=== PATIENT | male | born 1995 | race Two or more races ===

== ENCOUNTER 2024-05-28 14:17 | Outpatient (REF) | payer MEDICAID, SELFPAY ==
--- NOTE | ~2024-05-28 | XR_ITS ---
EXAMINATION: XR FEMUR, LEFT CLINICAL INFORMATION: chronic leg pain COMPARISON: None available. TECHNIQUE: AP and lateral views of the left femur were obtained. FINDINGS: The bones and soft tissues are normal. No fracture. No osseous lesions. Imaged joints appear normal. XR/XR femur LT 2V IMPRESSION: Normal left femur. Electronically signed by: Dusty Luque MD 05/28/2024 02:55 PM EDT RP
--- OUTSIDE RECORDS SUMMARY | 2024-05-28 18:00 | XMS_ITS | Encounter Summary ---
Author Organization [employer] Address [address] [place] [address] Care Team Providers Care Manager Wastewater Name Role Phone Unavailable Primary Care Provider Unavailabl e Reason for Visit * Reason Comments Walk-In Headaches and migrai sayra, pt is used to having headaches but recently they have been back to back which is causing him to vomit and go pale ; pt also states that he is experiencing sharp pain onhis left side from his hip down to his leg Encounter Details Date Type Department Care Team (Latest Contact Info) Description 05/27/2024 6:00 PM EDT Office Visit [facility] [address] [place] [id number] Left leg pain (Primary Dx); Chronic nonintractable headache, unspecified headache type; Elevated blood pressure reading in office without diagnosis of hypertension Social History Tobacco Use Types Packs/Day Years Used Date Smoking Tobacco: Never Passive Smoke Exposure: Never Smokeless Tobacco: Never Tobacco Cessation:Counseling Given: Not Answered Sex and Gender Information Value Date Recorded Sex Assigned at Male 05/27/2024 1:31 PM EDT Legal Sex Male 1:29 PM EDT Gender Identity Male 05/27/2024 1:31 PM EDT Sexual Orientation Straight 05/27/2024 1: 31 PM EDT documented as of this encounter Last Filed Vital Signs Vital Sign Reading Time Taken Comments Blood Pressure 146/90 05/27/2024 7:21 PM EDT manual BP check Pulse 80 05/27/2024 5:53 PM EDT Temperature 36.8 ??C (98.2 ??F) 05/27/2024 5 :53 PM EDT Respiratory Rate 20 05/27/2024 5:53 PM EDT Oxygen Saturation 98% 05/27/2024 5:5 3 PM EDT Inhaled Oxygen Concentration - - Weight 92.5 kg (204 lb) 05/27/2024 5:53 PM EDT Height - - Body Mass Index - - documented in this encounter Plan of Treatment Upcoming Encounters Date Type Department Care Team (Late st Contact Info) Description 06/10/2024 10:00 AM EDT Office Visit [facility] [address] [place] [address] Maryann Andino DMD Scheduled Orders Name Type Priority Associated Diagnoses Orde r Schedule Basic Metabolic Panel Lab Routine Left leg pain Expected: 05/27/2024 (Approximate), Expires: 05/27/2025 documented as of this encounter Procedures Procedure Name Priority Date/Time Associated Diagnosis Comments XR FEMUR 2+ VIEWS LEFT Routine 05/28/2024 2:19 PM EDT Left leg pain documented in this encounter Results * XR Femur 2+ Views Left (05/28/2024 2:19 PM EDT) Anatomical Region Laterality Modality Lower Extremities, Femur Left Radiogr aphic Imaging 05/28/2024 2:19 PM EDT Narrative 05/28/2024 2:58 PM EDT ?[facility] ?[address] ?[place] [address] ?XRay Report ? Signed ? Patient: Martin Trujillo ?MR#: [id number] ? : 1995 ?Acct:[id number] ? Age/Sex: 29 / M ?ADM Date: 05/28/24 ? Loc: HO.HHCX ? Attending Jamal Burton ? Ordering Physician: Trista Burton ?? Date of Service: 05/28/24 ?? Procedure(s): XR femur LT 2V ?? Accession Number(s): [id number] ? cc: Trista Burton ? EXAMINATION: ?? XR FEMUR, LEFT ? CLINICAL INFORMATION: ?? chronic leg pain ? COMPARISON: ?? None available. ? TECHNIQUE: ?? AP and lateral views of the left femur were obtained. ? FINDINGS: ?? The bones and soft tissues are normal. No fracture. No osseous lesions. ?? Imaged joints appear normal. ? XR/XR femur LT 2V ?? IMPRESSION: ?? Normal left femur. ? Electronically signed by: ??Dusty Luque MD ??05/28/2024 02:55 PM EDT RP ? Dictated By: ?Dusty Luque MD ? Signed By: ?<Electronically signed by Dusty Luque MD in OV> ?05/28/24 1455 ? DD/ 1419 ? TD/TT: 05/28/24 1449 ? Trail Maintenance Worker: ? Procedure Note Donandres, Image - 05/28/2024 [facility] [address] [place] [address] XRay Report Signed Patient: Amina Trujillo#: [id number] : 1995Acct:[id number] Age/Sex: 29 Date: 05/28/24 Loc: HO.HHCX Attending Dr: Trista Burton Ordering Physician: Trista Burton Date of Service: 05/28/24 Procedure(s): XR femur LT 2V Accession Number(s): [id number] cc: Trista Burton EXAMINATION: XR FEMUR, LEFT CLINICAL INFORMATION: chronic leg pain COMPARISON: None available. TECHNIQUE: AP and lateral views of the left femur were obtained. FINDINGS: The bones and soft tissues are normal. No fracture. No osseous lesions. Imaged joints appear normal. XR/XR femur LT 2V IMPRESSION: Normal left femur. Electronically signed by: Dusty Luque MD 05/28/2024 02:55 PM EDT Dictated By: Dusty Luque MD Signed By: <Electronically signed by Dusty Luque MD in OV> 05/28/24 1455 DD/ 1419 TD/TT: 05/28/[address] Maintenance Worker: Trista Burton SCIENCE AND OPERATIONS OFFICER IMG XR PROCEDURES Final Result documented in this encounter Visit Diagnoses Diagnosis Left leg pain- Primary Pain in soft tissues of limb Chronic nonintractable headache, unspecified headache type Elevated blood pressure reading in office without diagnosis of hypertension documented in this encounter
--- OUTSIDE RECORDS SUMMARY | 2024-05-28 18:00 | XMS_ITS | Clinical Summary ---
Author Organization [email or web address] Address [address] [place] [address] Care Team Providers Care Special Education Paraeducator Name Role Phone Unavailable Primary Care Provider Unavailabl e Allergies Active Allergy Reactions Criticality Noted Date Comments Cat Dander Anaphylaxis High 05/27/2024 Dog Epithelium Hives 05/27/2024 Peanut Butter Flavoring Agen t (Non-Screening) Other 05/27/2024 Medications acetaminophen (Tylenol) 500 MG tablet Take 1 tablet (500 mg) by mouth every 6 (six) hours if needed for mild pain for up to 20 doses. 20 tablet 5 Active amoxicillin (Amoxil) 500 MG capsule Take 1 capsule (500 mg) by mouth every 8 (eight) hours for 7 days. 21 capsule 5 06/04/19 25 Active chlorhexidine (Peridex) 0.12 % solution Swish 15 mL morning and night for 1 minute. Spit, do not swallow. Do not eat or drink for 30 minutes following use. 473 mL 5 Active ibuprofen 600 MG tablet Take 1 tablet (600 mg) by mouth every 6 (six) hours if needed for mild pain or moderate pain for up to 20 doses. 20 tablet 5 Active baclofen (Lioresal) 10 MG tabletIndications: Left leg pain Take one tablet TID PRN 30 tablet 5 Active SUMAtriptan (Imitrex) 25 MG tabletIndications: Chronic nonintractable headache, unspecified headache type Take 1 tablet (25 mg) by mouth 1 (one) time if needed for migraine for up to 9 doses. May repeat dose once in 2 hours if no relief. Do not exceed 2 doses in 24 hours. 9 tablet 5 Active Blood Pressure kitIndications:Chanelle vated blood pressure reading in office without diagnosis of hypertension 1 each 2 times daily. 1 kit 05/28/19 Active Encounters Date Type Department Care Team Description 05/27/2024 6:00 PM EDT Office Visit [facility] [address] [place] [address] Left leg pain (Primary Dx); Chronic nonintractable headache, unspecified headache type; Elevated blood pressure reading in office without diagnosis of hypertension 05/27/2024 2:30 PM EDT Office Visit [facility] [address] [place] [address] Bharat Mercedes from Last 3 Months Social History Tobacco Use Types Packs/Day Years Used Date Smoking Tobacco: Never Passive Smoke Exposure: Never Smokeless Tobacco: Never Tobacco Cessation:Counseling Given: Not Answered Sex and Gender Information Value Date Recorded Sex Assigned at Male 05/27/2024 1:31 PM EDT Legal Sex Male 1:29 PM EDT Gender Identity Male 05/27/2024 1:31 PM EDT Sexual Orientation Straight 05/27/2024 1: 31 PM EDT Last Filed Vital Signs Vital Sign Reading [...] - - Body Mass Index - - Plan of Treatment Upcoming Encounters Date Type Department Care Team (Late st Contact Info) Description 06/10/2024 10:00 AM EDT Office Visit [facility] [address] [place] [address] Maryann Andino DMD Health Maintenance Due Date Last Done Comments Dental Oral Exam 1996 Dental Prophylaxis 1996 Dental X-Ray: Bitewings 1996 Dental X-Ray: Full Mouth 1996 Depression Screening 1996 HIV Screening 1996 SDOH Screening 1996 Alcohol/Substance Use Screening 2008 Family Planning (PISQ) 2011 Hepatitis C Screening 2014 DTaP/Tdap/Td Vaccines (1 - Tdap) 2015 Hepatitis B Vaccines (1 of 3 - 19+ 3-dose series) 2015 COVID-19 Vaccine (1 - 2023-2 5 season) 2023 Influenza Vaccine (#1) 2023 Tobacco Screening 05/27/2025 05/27/2024 Zoster Vaccines (1 of 2) 2046 RSV Patients and Pa tients Aged 60 years or older (1 - 1-dose 75+ series) 2071 HIB Vaccines Aged Out No longer eligi ble based on patient's age to complete this topic HPV Vaccines Aged Out No longer eligi ble based on patient's age to complete this topic Hepatitis A Vaccines Aged Out No long er eligible based on patient's age to complete this topic IPV Vaccines Aged Out No longer eligi ble based on patient's age to complete this topic Meningococcal Vaccine Aged Out No jc hesham eligible based on patient's age to complete this topic Pneumococcal Vaccine: Pediat rics (0 to 5 Years) and At-Risk Patients (6 to 49) Years) Aged Out No longer elig ible based on patient's age to complete this topic RSV under 20 months Aged Out No longe r eligible based on patient's age to complete this topic Rotavirus Vaccines Aged Out No longer eligible based on patient's age to complete this topic Procedures Procedure Name Priority Date/Time Associated Diagnosis Comments XR FEMUR 2+ VIEWS LEFT Routine 05/28/2024 2:19 PM EDT Left leg pain CASE PRESENTATION, DETAILED AND EXTENSIVE TREATMENT PLANNING Routine 05/27/2024 2:30 PM EDT INTRAORAL - PERIAPICAL FIRST RADIOGRAPHIC IMAGE Routine 05/27/2024 2:30 PM EDT LIMITED ORAL EVALUATION - PROBLEM FOCUSED Routine 05/27/2024 2:30 PM EDT from Last 3 Months Results * XR Femur 2+ Views Left (05/28/2024 2:19 PM EDT) Anatomical Region Laterality Modality Lower Extremities, Femur Left Radiogr aphic Imaging 05/28/2024 2:19 PM EDT Narrative 05/28/2024 2:58 PM EDT ?[facility] ?[address] ?[place] [address] ?XRay Report ? Signed ? Patient: Cedrez,Martin ?MR#: [id number] ? : 1995 ?Acct:[id number] ? Age/Sex: 29 / M ?ADM Date: 05/28/24 ? Loc: HO.HHCX ? Attending DrPastor Burton ? Ordering Physician: Trista Burton ?? Date of Service: 05/28/24 ?? Procedure(s): XR femur LT 2V ?? Accession Number(s): [id number] ? cc: Trista Burton ? EXAMINATION: ?? [...] DD/ 1419 ? TD/TT: 05/28/24 1449 ? Pigment Pumper: ? Procedure Note Sreekanth, Image - 05/28/[address] [address] XRay Report Signed Patient: Amina Trujillo#: [id number] : 1995Acct:[id number] Age/Sex: 29 / MADM Date: 05/28/24 Loc: HO.HHCX Attending Dr: Trista Burton Ordering Physician: Trista Burton Date of Service: 05/28/24 Procedure(s): XR femur LT 2V Accession Number(s): [id number] cc: Trista Burton EXAMINATION: XR FEMUR, LEFT CLINICAL INFORMATION: chronic leg pain COMPARISON: None available. TECHNIQUE: AP and lateral views of the left femur were obtained. FINDINGS: The bones and soft tissues are normal. No fracture. No osseous lesions. Imaged joints appear normal. XR/XR femur LT 2V IMPRESSION: Normal left femur. Electronically signed by: Dusty Luque MD 05/28/2024 02:55 PM EDT RP Dictated By: Dusty Luque MD Signed By: <Electronically signed by Dusty Luque MD in OV> 05/28/24 1455 DD/ 1419 TD/TT: 05/28/24 1449 Pigment Pumper: Trista Burton SILVICULTURE PROFESSOR IMG XR PROCEDURES Final Result from Last 3 Months Insurance [facility] C3 DENTAL-[facility] MEDICAID STAND ADULT
--- OUTSIDE RECORDS SUMMARY | 2024-05-28 18:00 | XMS_ITS | Encounter Summary ---
Author Organization [employer] Address [address] [facility] [address] [place] [address] Care Team Providers Care Fac Engineer Name Role Phone Unavailable Primary Care Provider Unavailabl e Reason for Visit * Reason Comments Dental Pain Encounter Details Date Type Department Care Team ([facility] st Contact Info) Description 05/27/2024 2:30 PM EDT Office Visit [facility] [address] [place] [address] Bharat Mercedes [address] [place] [address] Social History Tobacco Use Types Packs/Day Years Used Date Smoking Tobacco: Never Passive Smoke Exposure: Never Smokeless Tobacco: Never Sex and Gender Information Value Date Recorded Sex Assigned at Male 05/27/2024 1:31 PM EDT Legal Sex Male 1:29 PM EDT Gender Identity Male 05/27/2024 1:31 PM EDT Sexual Orientation Straight 05/27/2024 1: 31 PM EDT documented as of this encounter Progress Notes * Bharat Mercedes - 05/27/2024 2:30 PM EDT Images from the original note were not included. Dental procedures in this visit D0140 - LIMITED ORAL EVALUATION - PROBLEM FOCUSED (Completed) Service provider: Bharat Mercedes Billing provider: Bharat Mercedes [id number] - INTRAORAL - PERIAPICAL FIRST RADIOGRAPHIC IMAGE (Completed) Service provider: Bharat Mercedes Billing provider: Bharat Mercedes [id number] - CASE PRESENTATION, DETAILED AND EXTENSIVE TREATMENT PLANNING (Completed) Service provider: Bharat Mercedes Billing provider: Bharat Mercedes Patient ID: Martin Trujillo is a 29 y.o. male. Time Out: Timeout Date: 05/27/24 (lower left pain), Timeout Time: 1402 Location: [facility] Tooth: #19 Procedure: Exam and X-rays Verified the above with patient, assistant project engineer, and provider. Confirmed via patient's chart, intraorally and by radiographs. Potato Peeler: not applicable Chief Complaint Patient presents with Dental Pain Medical Hx: Vitals: There were no vitals taken for this visit. History reviewed. No pertinent past medical history. Medications: Outpatient Encounter Medications as of 05/27/2024 Medication Sig Dispense Refill acetaminophen (Tylenol) 500 MG tablet Take 1 tablet (500 mg) by mouth every 6 (six) hours if neededfor mild pain for up to 20 doses. 20 tablet 0 amoxicillin (Amoxil) 500 MG capsule Take 1 capsule (500 mg) by mouth every 8 (eight) hours for 7 days. 21 capsule 0 chlorhexidine (Peridex) 0.12 % solution Swish 15 mL morning and night for 1 minute. Spit, do not swallow. Do not eat or drink for 30 minutes following use. 473 mL 0 ibuprofen 600 MG tablet Take 1 tablet (600 mg) by mouth every 6 (six) hours if needed for mild painor moderate pain for up to 20 doses. 20 tablet 0 No facility-administered encounter medications on file as of 05/27/2024. 29 y/o male presents for emergency seen by Dr. Bharat Mercedes, [facility]. Chief Complaint: I have pain in lower left back tooth Medical History: Patient does not report any changes in health issues that could alter the Treatment Plan. Medical consult / medical clearance needed: None [place]: Pain: not present today Pain radiating: no Postural variation: no Allergies: Reviewed in EHR Medications: Reviewed in EHR Radiographs X-rays taken today: 1 PA taken today Discussion: -Pt stated that patient has a lot of pain in lower left back tooth. -Clinically, intraoral swelling and redness evident in relation to #19 -PARL in relation to #19 retained root tip evident. -Pt was recommended extraction #19 retained root tip with Dr. Sinclair. -Pt informed about waiting list of Dr. Sinclair and pt understood and agreed. -Medications prescribed. -OHI reviewed. Emphasis was laid on maintaining good oral hygiene regimen at home along with regular visits to dentist. -Pt understood, was satisfied with our conversation and agreed with tx plan; dismissed in good condition. -All questions answered. Soft tissue exam: redness, tenderness and inflammation evident in relation to #19 retained root tip; OCS- negative Head and neck exam: Lymph Nodes, Lips, Palate, Buccal Mucosa, Floor of Mouth, Tongue, Tonsils, Alveolar Ridges, Oropharynx, Salivary Ducts, Vestibules - no abnormal findings. TMJ/Occlusal - TMJ is within normal limits. Oral Cancer Risk - low Oral Hygiene Instruction Provided - Yes Oral Hygiene Instructions: Gore two times daily, modified gary technique, Floss daily, Electric toothbrush, Soft bristle toothbrush, Gore Tongue. Referrals - None Treatment plan: -consult with Dr. Sinclair All questions answered and expressed understanding. Dismissed in good condition. Rx: Amoxicillin 500 mg 1 cap every 8 hours for 7 days- 21 capsules Acetaminophen 500 mg 1 tab every 6 hours prn - 20 tabs Ibuprofen 600 mg 1 tab every 6 hours prn - 20 tabs Peridex NV: consult with Dr. Sinclair Lifter Driver: Ngoc Singh Dentist: Dr. Bharat Mercedes DMD documented in this encounter Plan of Treatment Upcoming Encounters Date Type Department Care Team (Late st Contact Info) Description 06/10/2024 10:00 AM EDT Office Visit [facility] [address] [place] [address] Maryann Andino DMD Scheduled Orders Name Type Priority Associated Diagnoses Orde r Schedule 19 19 EXTRACTION, ERUPTED TOOTH OR EXPOSED ROOT (ELEVATION/FORCEPS REMOVAL) Dental Routine [address] arting 05/27/2024 documented as of this encounter Procedures Procedure Name Priority Date/Time Associated Diagnosis Comments LIMITED ORAL EVALUATION - PROBLEM FOCUSED Routine 05/27/2024 2:30 PM EDT INTRAORAL - PERIAPICAL FIRST RADIOGRAPHIC IMAGE Routine 05/27/2024 2:30 PM EDT CASE PRESENTATION, DETAILED AND EXTENSIVE TREATMENT PLANNING Routine 05/27/2024 2:30 PM EDT documented in this encounter Visit Diagnoses Not on filedocumented in this encounter
== END 2024-05-28 14:18 | disposition home or self-care (01) ==
LOC: HO.HHCX 14:17
PROVIDERS: Visit Provider Nurse Practitioner
DX: M79.605 Pain in left leg (principal)
CPT/HCPCS: 73552

== ENCOUNTER → 2024-05-28 14:19 | Outpatient (BNV) | payer MEDICAID, SELFPAY | PROVIDERS: Visit Provider Radiology Diagnostic Radiology | DX: M79.605 Pain in left leg (principal) | CPT/HCPCS: 73552 ==

== ENCOUNTER 2024-10-26 13:50 | Outpatient (REF) | payer MEDICAID, SELFPAY ==
--- OUTSIDE RECORDS SUMMARY | 2024-10-26 13:00 | XMS_ITS | Encounter Summary ---
Author Organization [employer] Address [address] [facility] 7[address] [place] [address] Care Team Providers Care Documentation Writer Name Role Phone Trista Burton NP Primary Care Provider [phone] Reason for Visit * Reason Comments new patient Encounter Details Date Type Department Care Team ([facility] st Contact Info) Description 10/26/2024 1:00 PM EDT Office Visit [facility] [address] [place] [address] Trista Burton NP [address] [place] [address] Routine screening for STI (sexually transmitted infection) (Primary Dx); Encounter for health-related screening; Rash of genital area; Rectal pain; Tonsillar exudate Social History Tobacco Use Types Packs/Day Years Used Date Smoking Tobacco: Never Passive Smoke Exposure: Never Smokeless Tobacco: Never Alcohol Use Standard Drinks/Week Comments Yes 0 (1 standard drink = 0.6 oz pur e alcohol) drinks on occassion Alcohol Answer Date Recorded How often do you have a drink containing alcohol ? 1 10/26/2024 How many drinks containing a lcohol do you have on a typical day when you are drinking? 1 10/26/2024 How often do you have six or more drinks on one occasion? 0 10/26/2024 Depression Answer Date Recorded Patient Health Questionnaire-9 Score 24 10/26/2024 Patient Health Questionnaire-9 Score 24 10/26/2024 Last PHQ-9: Questionnaire Data Not on file 0 10/26/2024 Housing Stability Answer Date Recorded What is your housing situation today? I do not have housing (Staying with others, in a hotel, in a fci, living outside on the street, on a beach, in a car, or in a park 10/26/[address] you li ve. Do you have problems with any of the following? I am not sure 10/26/2024 Food Insecurity Answer Date Recorded Within the past 12 months, y ou worried that your food would run out before you got money to buy more: Sometimes True 2024 Within the past 12 months,th e food you bought just didn't last and you didn't have enough money to get more: Often true 10/26/2024 Transportation Answer Date Recorded In the past 12 months, has l ack of transportation kept you from medical appts, meetings, work or from getting things needed for daily living? I am not sure 10/26/2024 Utilities Answer Date Recorded In the past 12 months, has t he electric, gas, oil or water company threatened to shut off services in your home? I am not sure 10/26/2024 Depression Answer Date Recorded Patient Health Questionnaire-2 Score 6 10/26/2024 Internet Access Answer Date Recorded Internet Access Q1 Yes 10/26/2024 Internet Access Q2 Not on file 10/26/2024 Sex and Gender Information Value Date Recorded Sex Assigned at Male 05/27/2024 1:31 PM EDT Legal Sex Male 1:29 PM EDT Gender Identity Male 05/27/2024 1:31 PM EDT Sexual Orientation Straight 05/27/2024 1: 31 PM EDT documented as of this encounter Last Filed Vital Signs Vital Sign Reading Time Taken Comments Blood Pressure 120/86 10/26/2024 1:09 PM EDT Pulse 90 10/26/2024 1:09 PM EDT Temperature 37 C (98.6 F) 10/26/2024 1:09 PM EDT Respiratory Rate 21 10/26/2024 1:09 PM EDT Oxygen Saturation 98% 10/26/2024 1:09 PM EDT Inhaled Oxygen Concentration - - Weight 96.2 kg (212 lb) 10/26/2024 1:09 PM EDT Height 170.2 cm (5' 7 ) 10/26/2024 1:09 PM EDT Body Mass Index 33.2 10/26/2024 1:09 PM EDT documented in this encounter Functional Status * Over the past 2 weeks, how often have you been bothered by any of the following problems? Question Answer Date of Assessment Author Patient Health Questionnaire -2 Score 6 10/26/2024 1:13 PM EDT Mc Borges [place] * Little interest or pleasure in doing things Answer Date of Assessment Author Nearly every day 10/26/2024 1:13 PM EDT Mc Borges [place] * Feeling down, depressed, or hopeless Answer Date of Assessment Author Nearly every day 10/26/2024 1:13 PM EDT Mc Borges MA * Trouble falling or staying asleep, or sleeping too much Answer Date of Assessment Author Nearly every day 10/26/2024 1:13 PM EDT Mc Borges MA * Feeling tired or having little energy Answer Date of Assessment Author Nearly every day 10/26/2024 1:13 PM EDT Mc Borges MA * Poor appetite or overeating Answer Date of Assessment Author More than half the days 10/26/2024 1:13 PM EDT Mc Moreno MA * Feeling bad about yourself - or that you are a failure or have let yourself or your family down Answer Date of Assessment Author Nearly every day 10/26/2024 1:13 PM EDT Mc Borges MA * Trouble concentrating on things, such as reading the newspaper or watching television Answer Date of Assessment Author Nearly every day 10/26/2024 1:13 PM EDT Mc Borges [place] * Moving or speaking so slowly that other people could have noticed? Or the opposite - being so fidgety or restless that you have been moving around a lot more than usual. Answer Date of Assessment Author More than half the days 10/26/2024 1:13 PM EDT Mc Moreno MA * Thoughts that you would be better off or hurting yourself in some way Answer Date of Assessment Author More than half the days 10/26/2024 1:13 PM EDT Mc Moreno MA * Patient Health Questionnaire-9 Score Answer Date of Assessment Author 24 10/26/2024 1:13 PM EDT Mc Borges MA * How difficult have these problems made it for you to do your work, take care of things at home, or get along with other people? Answer Date of Assessment Author Extremely difficult 10/26/2024 1:13 PM EDT Mc Reagan [place] * Over the last 2 weeks, how often have you been bothered by any of the following problems? Question Answer Date of Assessment Author Feeling nervous, anxious, or on edge 3 10/26/2024 1:13 PM EDT Mc Borges MA Not being able to stop or co ntrol worrying 2 10/26/2024 1:13 PM EDT Mc Borges MA Worrying too much about diff erent things 3 10/26/2024 1:13 PM EDT Mc Borges MA Trouble relaxing 3 10/26/2024 1:13 PM EDT Mc Moreno MA Being so restless that it is hard to sit still 2 10/26/2024 1:13 PM EDT Mc Borges MA Becoming easily annoyed or irritable 3 10/26/2024 1:13 PM EDT Mc Borges MA Feeling afraid as if somethi ng awful might happen 3 10/26/2024 1:13 PM EDT Mc Borges MA NATTY-7 Total Score 19 10/26/2024 1:13 PM EDT Mc Borges MA documented as of this encounter Plan of Treatment Scheduled Orders Name Type Priority Associated Diagnoses Orde r Schedule Hepatitis B Core Antibody, Total Lab Routine Routine screening for STI (sexually transmitted infection) Expected: 10/26/2024 (Approximate), Expires: 10/26/2025 Hepatitis B surface antigen, EIA Lab Routine Routine screening for STI (sexually transmitted infection) Expected: 10/26/2024 (Approximate), Expires: 10/26/2025 Hepatitis B Surface Antibody, Qualitative Lab Routine Routine screening for STI (sexually transmitted infection) Expected: 10/26/2024 (Approximate), Expires: 10/26/2025 Hepatitis C Antibody with Reflex to HCV, RNA, Quantitative, Real-Time PCR Lab Routine Routine screening for STI (sexually transmitted infection) Expected: 10/26/2024 (Approximate), Expires: 10/26/2025 HIV-1/2 Antigen and Antibodies, Fourth Generation, with Reflexes Lab Routine Routine screening for STI (sexually transmitted infection) Expected: 10/26/2024 (Approximate), Expires: 10/26/2025 Chlamydia/N. Gonorrhoeae, PCR, Urine Lab Routine Routine screening for STI (sexually transmitted infection) Ordered: 10/26/2024 Trichomonas RNA (Urine/Vaginal) Lab Routine Routine screening for STI (sexually transmitted infection) Ordered: 10/26/2024 Lipid Panel, Standard Lab Routine Encounter for health-related screening Expected: 10/26/2024 (Approximate), Expires: 10/26/2025 Strep A culture, throat Microbiology Routine Tonsillar exudate Expected: 10/26/2024 (Approximate), Expires: 10/26/2025 documented as of this encounter Visit Diagnoses Diagnosis Routine screening for STI (sexually transmitted infection)- Primary Screening examination for venereal disease Encounter for health-related screening Rash of genital area Rectal pain Anal or rectal pain Tonsillar exudate documented in this encounter Additional Health Concerns Assessment Noted Time PHQ-9 Depression Total Score: 24 025 1:13 PM EDT documented as of this encounter Care Teams Documentation Writer Relationship Specialty Start Date End Date Trista Burton NP [address] [place] [id number] PCP - General Family Medicine 10/26/24 documented as of this encounter
--- OUTSIDE RECORDS SUMMARY | 2024-10-26 15:11 | XMS_ITS | Encounter Summary ---
Author Organization [employer] Address [address] [facility] 7[address] [place] [address] Care Team Providers Care Welding Process Engineer Name Role Phone Trista Burton NP Primary Care Provider [phone] Encounter Details Date Type Department Care Team ([facility] st Contact Info) Description 08/26/2024 Results Follow-Up [facility] [address] [place] [address] Trista Burton NP [address] [place] [address] XR Femur 2+ Views Left Social History Tobacco Use Types Packs/Day Years Used Date Smoking Tobacco: Never Passive Smoke Exposure: Never Smokeless Tobacco: Never Sex and Gender Information Value Date Recorded Sex Assigned at Male 05/27/2024 1:31 PM EDT Legal Sex Male 1:29 PM EDT Gender Identity Male 05/27/2024 1:31 PM EDT Sexual Orientation Straight 05/27/2024 1: 31 PM EDT documented as of this encounter Plan of Treatment Not on file documented as of this encounter Visit Diagnoses Not on filedocumented in this encounter Care Teams Welding Process Engineer Relationship Specialty Start Date End Date Trista Burton NP [address] [place] [address] PCP - General Family Medicine 10/26/24 documented as of this encounter
--- OUTSIDE RECORDS SUMMARY | 2024-10-26 15:11 | XMS_ITS | Encounter Summary ---
Author Organization [employer] Address [address] [facility] [address] [place] [address] Care Team Providers Care Flatwork Supervisor Name Role Phone Trista Burton DINORA Primary Care Provider [phone] Encounter Details Date Type Department Care Team (Latest Contact Info) Description 10/26/2024 Travel Social History Tobacco Use Types Packs/Day Years [...] with others, in a hotel, in a alf, living outside on the street, on a [...] PM EDT documented as of this encounter Functional Status * Over the [...] the days 10/26/2024 1:13 PM EDT Mc Mroeno MA * Thoughts that you would be better off or hurting yourself in some way Answer Date of Assessment Author More than half the days 10/26/2024 1:13 PM EDT Mc Moreno MA * Patient Health Questionnaire-9 Score Answer Date of Assessment Author 10/26/2024 1:13 PM EDT Mc Borges MA [...] Diagnoses Not on filedocumented in this encounter Additional Health Concerns Assessment Noted Time PHQ-9 Depression Total Score: 24 10/26/ 025 1:13 PM EDT documented as of this encounter Care Teams Flatwork Supervisor Relationship Specialty Start Date End Date Trista Burton NP [address] [place] [address] PCP - General Family Medicine 10/26/24 documented as of this encounter
--- OUTSIDE RECORDS SUMMARY | 2024-10-26 15:11 | XMS_ITS | Clinical Summary ---
Author Organization [employer] Address [address] [facility] [address] 7[address] [place] [address] Care Team Providers Care Soap Tender Name Role Phone Jairbre Trista DINORA Primary Care Provider [phone] Allergies Active Allergy Reactions Criticality Noted Date Comments Cat Dander Anaphylaxis High 05/27/2024 Dog Epithelium Hives 05/27/2024 Medications acetaminophen (Tylenol) 500 MG tablet Take 1 tablet (500 mg) by mouth every 6 (six) hours if needed for mild pain for up to 20 doses. 20 tablet 05/28/19 25 Active chlorhexidine (Peridex) 0.12 % solution Swish 15 mL morning and night for 1 minute. Spit, do not swallow. Do not eat or drink for 30 minutes following use. 473 mL 05/28/19 25 Active baclofen (Lioresal) 10 MG tabletIndications :Left leg pain Take one tablet TID PRN 30 tablet 05/28/19 25 Active Blood Pressure kitIndications:El evated blood pressure reading in office without diagnosis of hypertension 1 each 2 times daily. 1 kit 05/28/19 25 2025 Active SUMAtriptan (Imitrex) 25 MG tabletIndications :Chronic nonintractable headache, unspecified headache type TAKE 1 TABLET BY MOUTH IF NEEDED FOR MIGRAINE. REPEAT ONCE IN 2 HOURS IF NO RELIEF MAX 2 DOSES/24HRS 9 tablet 06/27/19 25 Active escitalopram (Lexapro) 5 MG tablet Take 5 mg by mouth in the morning. 10/08/19 25 Active ibuprofen 600 MG tablet Take 1 tablet (600 mg) by mouth every 6 (six) hours if needed for mild pain or moderate pain for up to 20 doses. 20 tablet 05/28/19 25 2024 Discontinued(M ed list cleanup (will not trigger notification to Pharmacy)) ibuprofen 600 MG tablet Take 1 tablet (600 mg) by mouth every 6 (six) hours if needed for mild pain for up to 20 doses. 20 tablet 06/26/19 25 2024 Discontinued(M ed list cleanup (will not trigger notification to Pharmacy)) Encounters Date Type Department Care Team Description 10/26/2024 1:00 [place] [address] Trista Burton NP Routine screening for STI (sexually transmitted infection) (Primary Dx); Encounter for health-related screening; Rash of genital area; Rectal pain; Tonsillar exudate 10/26/[address] [address] Trista Burton NP CHART PREP 10/26/2024 Travel 09/02/[address] [address] Trista Burton NP 08/26/2024 Results Follow-Up [address] [address] Trista Burton NP XR Femur 2+ Views Left from Last 3 Months Family History Medical History Relation Name Comments Asthma Brother Lupus Mother Mental illness Mother substance abuse Mother Asthma Sister Relation Name Status Comments Brother Mother Sister Social History Tobacco Use Types Packs/Day Years Used Date Smoking Tobacco: Never Passive Smoke Exposure: Never Smokeless Tobacco: Never Tobacco Cessation:Counseling Given: Not Answered Alcohol Use Standard Drinks/Week Comments Yes 0 [...] with others, in a hotel, in a snf, living outside on the street, on a [...] Mass Index 33.2 10/26/2024 1:09 PM EDT Plan of Treatment Health Maintenance Due Date Last Done Comments Dental Oral Exam 1996 Dental Prophylaxis 1996 Dental X-Ray: Bitewings 1996 Dental X-Ray: Full Mouth 1996 HIV Screening 1996 Family Planning (PISQ) 2011 HPV Vaccines (1 - Male 3-dos e series) 2011 Hepatitis C Screening 2014 DTaP/Tdap/Td Vaccines (1 - Tdap) 2015 Hepatitis B Vaccines (1 of 3 - 19+ 3-dose series) 2015 COVID-19 Vaccine (1 - 2023-2 5 season) 2023 Influenza Vaccine (#1) 2024 Depression Monitoring 04/28/2025 10/26/2024 , 10/26/2024 Alcohol/Substance Use Screening 10/26/2025 10/26/2024 Disability Screening 10/26/2025 10/26/2024 SDOH Screening 10/26/2025 10/26/2024 Tobacco Screening 10/26/2025 10/26/2024 Zoster Vaccines (1 of 2) 2046 RSV Patients and Patients Aged 60 years or older (1 - 1-dose 75+ series) 2071 HIB Vaccines Aged Out No longer eligi ble based on patient's age to complete this topic Hepatitis A Vaccines Aged Out No long er eligible based on patient's age to complete this topic IPV Vaccines Aged Out No longer eligi ble based on patient's age to complete this topic Meningococcal B Vaccine Aged Out No l onger eligible based on patient's age to complete this topic Meningococcal Vaccine Aged Out No jc hesham eligible based on patient's age to complete this topic Pneumococcal Vaccine: Pediatrics (0 to 5 Years) and At-Risk Patients (6 to 49) Years Aged Out No longer eligible b ased on patient's age to complete this topic RSV under 20 months Aged Out No longe r eligible based on patient's age to complete this topic Rotavirus Vaccines Aged Out No longer eligible based on patient's age to complete this topic Insurance [facility] C3 DENTAL-[facility] MEDICAID STAND ADULT Care Teams Soap Tender Relationship Specialty Start Date End Date Trista Burton NP [address] [place] [address] PCP - General Family Medicine 10/26/24
--- OUTSIDE RECORDS SUMMARY | 2024-10-26 15:11 | XMS_ITS | Encounter Summary ---
Author Organization [employer] Address [address] [facility] 7t [place] [address] Care Team Providers Care Marketing And Outreach Coordinator Name Role Phone Trista Burton NP Primary Care Provider Reason for Visit * Reason Onset Date Comments CHART PREP 10/26/2024 Encounter Details Date Type Department Care Team ([facility] st Contact Info) Description 10/26/2024 Telephone [facility] [address] [place] [address] Trista Burton NP [address] [place] [address] CHART PREP Social History Tobacco Use Types Packs/Day Years [...] with others, in a hotel, in a retirement, living outside on the street, on a [...] PM EDT documented as of this encounter Miscellaneous Notes * Telephone Encounter - Korina Kaufman MA - 10/26/2024 10:22 AM EDT Chart Prep Labs: not done 05/27/24 Images: done x-ray 05/28/24 femur Referrals: not applicable Vaccines due: Tdap, Hep B, and HPV Screenings: not applicable Overdue care gaps: SBIRT, SDOH, PHQ-9, NATTY-7, and Oral health screening documented in this encounter Plan of Treatment Not on file documented as of this encounter Visit Diagnoses Not on filedocumented in this encounter Additional Health Concerns Assessment Noted Time PHQ-9 Depression Total Score: 24 025 1:13 PM EDT documented as of this encounter Care Teams Marketing And Outreach Coordinator Relationship Specialty Start Date End Date Trista Burton NP [address] [place] [address] PCP - General Family Medicine 10/26/24 documented as of this encounter
[2024-10-26 16:30] LABS: Anion Gap 11 (12-20); Blood Urea Nitrogen 13 mg/dL (9-16); Calcium 10.4 mg/dL (8.4-10.2); Carbon Dioxide 24 mmol/L (22-29); Chloride 107 mmol/L (96-108); Cholesterol 205 mg/dL (<200); Estimated Glomerular Filt Rate > 60; HDL Cholesterol 36 mg/dL (>40); Potassium 4.4 mmol/L (3.3-5.1); Sodium 138 mmol/L (135-145); Triglycerides 230 mg/dL (<150)
[2024-10-27 04:29] LABS: HBS Num1 2.04 mIU/mL (0-7.99); HBc Num1 0.07 S/CO (0.00-0.79); HBsAGNum1 0.38 S/CO (0.00-0.99); HIV Num 1 0.05 S/CO (0.00-0.99); Hepatitis B Surface Antigen Negative (Negative); ~HepC Num1 0.17 S/CO (0.00-0.79); ~Hepatitis B Surface Antibody NONREACTIVE (Nonreactive); ~Hepatitis C Antibody Nonreactive (Nonreactive)
[2024-10-27 04:57] LABS: CT PCR Urine NOT DETECTED (Not Detect.); NG PCR Urine NOT DETECTED (Not Detect.)
== END 2024-10-26 13:51 | disposition home or self-care (01) ==
LOC: HO.HHCL 13:50
PROVIDERS: PCP Nurse Practitioner; Visit Provider Nurse Practitioner
DX: J35.8 Other chronic diseases of tonsils and adenoids (principal); Z11.3 Encounter for screening for infections with a predominantly sexual mode of transmission; Z11.9 Encounter for screening for infectious and parasitic diseases, unspecified; M79.605 Pain in left leg
CPT/HCPCS: 36415; 80048; 80061; 86704; 86706; 86803; 87070; 87340; 87389; 87491; 87591; 87661